=== PATIENT | male | born 1990 | race Caucasian/White ===

== ENCOUNTER 2017-04-25 08:25 | Emergency (ER) | payer OTHER ==
[~2017-04-25] VITALS: Ht 190.5 cm; Wt 130.2 kg
[~2017-04-25 08:25] MED LIST: BENADRYL25 MG PO; EPINEPHRIN0.15 MG/0. IM; MEDROL DOSEPAK4 MG PO; NAPROSYN500 MG PO; PEPCID20 MG PO; PERCOCET 5/31 TABLET PO
[2017-04-25] MEDS ORDERED: FLEXERIL10 MG PO (09:49)
[2017-04-25] MEDS ORDERED: IBUPROFEN800 MG PO (09:49)
[2017-04-25 10:21] VITALS: BP 112/87
== END 2017-04-25 10:22 | disposition home or self-care (01) ==
LOC: EME 08:25
DX: G56.32 Lesion of radial nerve, left upper limb (principal); S29.012A Strain of muscle and tendon of back wall of thorax, initial encounter; X50.9XXA Other and unspecified overexertion or strenuous movements or postures, initial encounter; Y93.83 Activity, rough housing and horseplay; Z87.891 Personal history of nicotine dependence
CPT/HCPCS: 73030; 99281; 99283; J1885